=== PATIENT | male | born 1955 | race Caucasian/White ===

== ENCOUNTER 2016-11-14 06:41 | Inpatient (IN) | payer OTHER ==
[2016-11-14] VITALS (28 sets, daily range): BP systolic 83–137; BP diastolic 51–84; PULSE 68–103; RESP 10–19; Ht 170.2 cm; Wt 91.8 kg
[~2016-11-14] VITALS: Ht 170.2 cm; Wt 91.8 kg
[~2016-11-14 06:41] MED LIST: CEFAZOLIN 2 GM/50 ML (PMX) 50 ML IVPB SCH; LACTATED RINGER'S 1,000 ML IV* SCH
[2016-11-14] MEDS ORDERED: GABA400C14 PO (07:19)
[2016-11-14] MEDS ORDERED: METH500T8 PO (07:20)
[2016-11-14] MEDS ORDERED: TAMS0.4C2 PO (07:20)
[2016-11-14] MEDS ORDERED: OMEP20CA16 PO (07:20)
[2016-11-14] MEDS ORDERED: SUCCINYLCHOLINE CHLORIDE 100 MG/5 ML SYG IV ONE (08:15)
[2016-11-14] MEDS ORDERED: ROCURONIUM 50 MG INJ ONE (08:15)
[2016-11-14] MEDS ORDERED: FENTAnyl 50 MCG/ML VIAL ONE ×2 (08:15→09:43)
[2016-11-14] MEDS ORDERED: PROPOFOL 100 ML ONE (08:15)
[2016-11-14] MEDS ORDERED: MIDAZOLAM 1 MG/ML 2 ML INJ ONE (08:15)
[2016-11-14] MEDS ORDERED: THROMBIN 5000 UNIT VIAL ONE (08:16)
[2016-11-14] MEDS ORDERED: POLYMYXIN/BACITRACIN 1L IRRIG ONE (08:16)
[2016-11-14] MEDS ORDERED: GELATIN SIZE 100 SPONGE ONE (08:16)
[2016-11-14] MEDS ORDERED: BUPIVACAINE 0.25% (MPF) 10 ML 10 ML VIAL ONE (08:16)
--- NOTE | 2016-11-14 08:38 | HPN ---
Date/Time of Note Date/Time of Note DATE: 11/14/16 TIME: 08:38 Interval H&P Admission Note Pt. seen H&P reviewed: No system changes PAYAM ALFRED MD Nov 14, 2016 08:38
[2016-11-14] MEDS ORDERED: CEFAZOLIN 2 GM/50 ML (PMX) 50 ML IVPB SCH (09:00)
[2016-11-14] MEDS ORDERED: hydrALAzine 20 MG INJ ONE (09:41)
[2016-11-14] MEDS ORDERED: LABETALOL HCL 20MG INJ ONE (09:41)
[2016-11-14] MEDS ORDERED: PHENYLephrine (100 MCG/ML) 5ML SYG ONE (09:49)
[2016-11-14] MEDS ORDERED: METOCLOPRAMIDE 10 MG INJ ONE (10:00)
[2016-11-14] MEDS ORDERED: ONDANSETRON 4 MG INJ ONE (10:00)
[2016-11-14] MEDS ORDERED: DEXAMETHASONE 4 MG/ML 1 ML INJ ONE (10:00)
[2016-11-14] MEDS ORDERED: FAMOTIDINE 20 MG INJ ONE (10:00)
--- NOTE | 2016-11-14 10:05 | RADRPT ---
PROCEDURE: XR Lumbar Spine. CLINICAL INDICATION: LUMBAR MICRODISCECTOMY TECHNIQUE: A single lateral view of the lumbar spine was obtained. COMPARISON: No prior studies are available for comparison. FINDINGS: There is normal alignment. Posterior needle markers are noted at L3-4 and L4-5. There is mild to moderate degenerative disk di sease at L3-4 including disk space narrowing. There is normal osseous mineralization. There is normal alignment. IMPRESSION: Posterior needle marker is at the L3-4 and L4-5 disk spaces. RPTAT: EE Physician Latricia Date Time Electronically viewed and signed by Physician Latricia on 11/14/2016 10:05 RA/
--- NOTE | 2016-11-14 10:11 | RADRPT ---
PROCEDURE: XR Lumbar Spine. CLINICAL INDICATION: LUMBAR MICRODISCECTOMY TECHNIQUE: A single lateral view of the lumbar spine was obtained. COMPARISON: No prior studies are available for comparison. FINDINGS: There is normal alignment. Posterior needle markers are noted at L2-3, L3-4, and L4-5 with post surgical material at the needle tips. There is mild to moderate degenerative disk disease at L3-4 including disk space narrowing. There is normal osseous mineralization. There is normal alignment. IMPRESSION: Posterior needle markers at L2-3, L3-4, and L4-5, as above. RPTAT: EE Physician Latricia Date Time Electronically viewed and signed by Physician Latricia on 11/14/2016 10:11 /
[2016-11-14] MEDS ORDERED: DIPHENHYDRAMINE 50 MG INJ IV PRN (10:30)
[2016-11-14] MEDS ORDERED: EPHEDrine SULFATE 50 MG/5 ML SYG IV PRN (10:30)
[2016-11-14] MEDS ORDERED: hydrALAzine 20 MG INJ IV PRN (10:30)
[2016-11-14] MEDS ORDERED: morphine (1 MG/ML) 10ML SYRINGE IV PRN ×3 (10:30)
[2016-11-14] MEDS ORDERED: ONDANSETRON 4 MG INJ IV PRN ×2 (10:30→12:00)
[2016-11-14] MEDS ORDERED: ALBUMIN HUMAN 5% 250 ML IV PRN (10:30)
[2016-11-14] MEDS ORDERED: METOCLOPRAMIDE 10 MG INJ IV PRN (10:30)
[2016-11-14] MEDS ORDERED: HYDROmorphONE (0.2 MG/ML) 10ML SYG IV PRN ×2 (10:30)
[2016-11-14] MEDS ORDERED: LABETALOL HCL 20MG INJ IV PRN (10:30)
[2016-11-14] MEDS ORDERED: MEPERIDINE 25 MG INJ IV PRN (10:30)
[2016-11-14] MEDS ORDERED: GLYCOPYRROLATE 0.4 MG INJ ONE (11:05)
[2016-11-14] MEDS ORDERED: NEOSTIGMINE 3 MG/3 ML SYRINGE ONE (11:05)
[2016-11-14] MEDS ORDERED: ACETAMINOPHEN 1000MG/100ML IV 100 ML ONE (11:06)
[2016-11-14] MEDS ORDERED: HYDROmorphONE 0.2 MG/ML PCA ONE (11:53)
[2016-11-14] MEDS: HYDROmorphONE (0.2 MG/ML) 10ML SYG IV PRN ×3 (11:54→12:26)
[2016-11-14] MEDS ORDERED: BETHANECHOL 25 MG TAB PO PRN (12:00)
[2016-11-14] MEDS ORDERED: PROCHLORPERAZINE 10 MG TAB PO PRN (12:00)
[2016-11-14] MEDS ORDERED: HYDROCODONE/APAP (5/325) TAB PO PRN (12:00)
[2016-11-14] MEDS ORDERED: NALOXONE (0.4 MG/ML) INJ IV PRN (12:00)
[2016-11-14] MEDS ORDERED: DIAZEPAM 5 MG TAB PO PRN (12:00)
[2016-11-14] MEDS ORDERED: CEPASTAT LOZENGE MT PRN (12:00)
[2016-11-14] MEDS ORDERED: HYDROmorphONE 0.2 MG/ML PCA IV SCH (12:00)
[2016-11-14] MEDS ORDERED: DIAZEPAM 5 MG/ML SYG IM PRN (12:00)
[2016-11-14] MEDS ORDERED: NACL 0.9% 3 ML SYG IV SCH (12:00)
[2016-11-14] MEDS ORDERED: DIPHENHYDRAMINE 50 MG CAP PO PRN (12:00)
[2016-11-14] MEDS ORDERED: AL HYDROX/MG HYDROX/SIMETH 30 ML CUP PO PRN (12:00)
[2016-11-14] MEDS ORDERED: TRIMETHOBENZAMIDE 100 MG/ML VIAL IM PRN (12:00)
[2016-11-14] MEDS ORDERED: ZOLPIDEM 5 MG TAB PO PRN (12:00)
--- NOTE | 2016-11-14 12:10 | OPR ---
Date/Time of Note Date/Time of Note DATE: 11/14/16 TIME: 12:06 Operative Report Preoperative Diagnosis HNP L3-4 right Spinal Stenosis L2, 3,and 4 Postoperative Diagnosis Same Operation Performed Central decompressive laminectomy at L2 Central decompressive laminectomy at L3 Central decompressive laminectomy at L4 Microdiscectomy L3-4 on the right Medial facetectomy and foraminotomy L2-3 L3-4 and L4-5 bilateral Cosmetic wound closure (12 cm) Intraoperative nerve monitoring (2 hours) Lateral localizing lumbar radiographs (2) Surgeon: PAYAM ALFRED MD pharmacy technician assistant: JULY CASH Anesthesia: general Anesthesiologist: DAVIS STOO MD Estimated Blood Loss: 200 - 250 ml's Specimens Spinous processes L2,L3, and L4 HNP L3-4 right Tubes/Drains Two medium Hemovacs Complications: None Pt Condition Post Procedure: stable Disposition: PACU Operative\Procedure Findings At surgery, moderate stenosis at L4 and moderately severe stenosis at L3 and L2 was confirmed. There was a small to moderate right paracentral herniation of the L3-4 disc. PAYAM ALFRED MD Nov 14, 2016 12:10
[2016-11-14] MEDS: CEFAZOLIN 1 GM/50 ML (PMX) 50 ML IVPB SCH ×3 (12:25→23:59)
--- NOTE | 2016-11-14 13:27 | OPR ---
DATE OF OPERATION: 11/14/2016 PREOPERATIVE DIAGNOSES: 1. Lumbar spinal stenosis at L2, L3 and L4. 2. Herniated disk, L3-4 on the right. POSTOPERATIVE DIAGNOSES: 1. Lumbar spinal stenosis at L2, L3 and L4. 2. Herniated disk, L3-4 on the right. OPERATION PERFORMED: 1. Central decompressive laminectomy at L2. 2. Central decompressive laminectomy at L3. 3. Central decompressive laminectomy at L4. 4. Microdiskectomy L3-4 on the right. 5. Medial facetectomy and foraminotomy, L2-3, L3-4, L4-5 bilaterally. 6. Cosmetic wound closure (12 cm). 7. Lateral localized lumbar radiographs (2). 8. Intraoperative nerve monitoring (2 hours) SURGEON: Edgar Lazcano MD PERSONNEL ASSOCIATE Jane White PA-C ANESTHESIA: General endotracheal. ANESTHESIOLOGIST: Dr. Leonardo ESTIMATED BLOOD LOSS: 250 mL, none replaced. DRAINS: Two medium Hemovac drains employed. COMPLICATIONS: None. PERTINENT HISTORY AND PHYSICAL: This is a 61-year-old male who sustained an injury to his back in t he course of his employment on 05/31/2015. He has had extensive care since that time, but has remai tam symptomatic with back and lower extremity complaints, right greater than left, which have been u nrelieved by conservative management. He has undergone a number of diagnostic studies including an MRI of the lumbar spine, which demonstrated spinal stenosis at L2, L3 and L4 along with a herniation of the L3-4 disk on the right. Treatment options were discussed with the patient, who elected to p roceed with surgery. OPERATIVE FINDINGS AT SURGERY: A moderately severe central stenosis at L2 and L3 and a moderate miya nosis at L4 were confirmed. The herniation of the L3-4 disk on the right was moderate in size. The baseline intraoperative nerve monitoring revealed a decrease in the L2 potential on the right of 50 %, the L3 potential on the right of 40% and the L4 potential on the right of 40%. These all returne d to normal at the completion of surgery. OPERATIVE PROCEDURE: With the patient in supine position after satisfactory induction of general en dotracheal anesthesia by Dr. Leonardo, the patient was turned to the prone kneeling position on the [facility] frame. All pressure points were carefully padded. Back was prepped and draped in usual miya rile fashion. Athrombic pumps were applied to the legs below the knees to prevent venous stasis dur ing and after procedure. An indwelling Preciado catheter was also placed preoperative to facilitate bl adder drainage during and after the procedure. Two spinal needles were placed next to what was felt to be the L2 and L4 spinous processes, lateral roentgenogram was taken which confirmed anatomic loc alization. A 12 cm incision then carried out midline from L2-L5 through skin and subcutaneous tissu e to the deep fascia after skin was infiltrated with 0.25% Marcaine without epinephrine for postoper ative analgesia. Superficial retractors were placed and hemostasis secured with electrocautery. Th roughout the procedure, copious amounts of antibacterial irrigating solution were used to periodical ly irrigate the wound. The fascia was incised in midline with a hot knife and a bilateral subperios teal dissection carried out from L2 to L4. Deep retractors were placed and deep hemostasis secured with electrocautery. A second intraoperative radiograph was taken with Evelia clamps on the spinous process of L2, L3 and L4 and this was confirmed with second x-ray. A central decompressive laminec ramona at L4, L3 and L2 was then carried out using a Ijeoma right-angle bone rongeur, Leksell rongeur , Kerrison punches and curettes. Ligamentum flavum was incised with sharp dissection. The operatin g microscope was moved into place. A medial facetectomy and foraminotomy was accomplished at L2-3, L3-4, and L4-5 bilaterally using a small hand osteotome, mallet, Kerrison punches and curettes. Attention was then turned to the L3-4 disk on the right where the L4 root was mobilized medially and protected with Brittnee'Gary nerve root retractor using microdissection technique. This revealed a mayco iation of the L3-4 disk. A 15 blade knife used to cut a rectangular window in the annulus and poste rior longitudinal ligament and multiple degenerative disk fragments were harvested with pituitary ro ngeurs and sent to laboratory for pathologic study. Additional fragments were harvested using Epste in curettes. A thorough search of the floor of the canal was made with an arthroscopic probe. No a dditional fragments were encountered. The epidural hemostasis was secured with bipolar electrocaute ry on low setting. The anesthesiologist then asked to perform a Valsalva maneuver at 40 mmHg and no spinal fluid leak was noted. The wound was then closed in layers over 2 medium Hemovac drains, one below the fascia and one above the fascia, using #1 Stratafix sutures on the deep paralumbar muscul ature and deep fascia of back, 2-0 Stratafix sutures in subcu tissue, and a 4-0 Vicryl subcuticular cosmetic closing suture on the skin. Dermabond and sterile compressive dressings were applied. Kecia ient having tolerated procedure well, was then turned to supine position onto his bed and extubated by Dr. Leonardo. He was transported to the recovery room in satisfactory condition. At the conclusi on of procedure, sponge, instrument, and needle counts were all correct. NEED FOR RESIDENTIAL FINISH CARPENTER: During this spinal surgical procedure, my assistant research scientist was used to retrac t and protect the spinal nerves and dural sac. My assistant research scientist also employed the suction catheters to e vacuate blood from the surgical field to improve visualization of the neural structures. The assista nt was medically necessary to facilitate the completion of the surgery in a safe and expeditious man ner. State of [place] regulations, as well as hospital bylaws, preclude the use of non-licensed [facility] care personnel such as operating room technicians, to perform these functions. Throughout the procedure, neural monitoring was carried out by [employer] including EMG, SSEP and MEP monitoring of the L2, L3, L4, L5, and S1 nerve roots bilaterally along w ith spinal cord potentials. These were interpreted by a neurologist employed by [employer]. Dictated By: EDGAR LAZCANO MD TM/BEATRICE Conf#: [id number] DID#: [id number] CC: CHARLEY HERBERT MD;*End*
--- NOTE | 2016-11-14 14:17 | CONS ---
DATE OF ADMISSION: 11/14/2016 DATE OF CONSULTATION: MEDICAL CONSULTATION Thank you, Dr. Lazcano, for asking me to participate in medical management of this patient. REASON FOR CONSULTATION: I am seeing this patient to manage his gastroesophageal reflux disease, be nign prostatic hypertrophy. HISTORY OF PRESENT ILLNESS: This 61-year-old man is now in the recovery room after undergoing a lum bar spine surgery. The patient was having low back pain preoperatively. 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 The patient has tried medical therapy. However , he continues to have low back pain. The pain radiates into the buttock on the left side of the mi d back and down both legs. The patient is now postop a lumbar spine surgery by Dr. Lazcano. That surgery was a central decompressive laminectomy at L2, L3, L4, and a microdiscectomy at the L3-L4 le shay on the right. The patient preoperatively was diagnosed with a herniated nucleus pulposus at the L3-L4 level and spinal stenosis at L2, L3, and L4. The patient is awake. He is having some low ba ck incisional pain. He denies any chest pain or shortness of breath. He is being medicated for his pain. PAST MEDICAL HISTORY: Remarkable for gastroesophageal reflux disease, benign prostatic hypertrophy. PAST SURGICAL HISTORY: Included cholecystectomy. CURRENT MEDICATIONS: 1. Gabapentin 400 mg 3 times a day. 2. Methocarbamol 500 mg tablets, 2 to 4 times a day. 3. Tamsulosin 0.4 mg a day. 4. Omeprazole 20 mg a day. SOCIAL HISTORY: The patient does not smoke. He is with 4 kids. He drinks alcohol occasion ally. ALLERGIES: HE HAS NO KNOWN DRUG ALLERGIES. PHYSICAL EXAMINATION: GENERAL: At this time reveals a well-developed man in no apparent distress. VITAL SIGNS: Pulse is 88, blood pressure 121/72, O2 saturation is 98% on 2 L nasal cannula. HEENT: Head normocephalic. Eyes: Extraocular muscles intact. Nose and mouth: Normal. NECK: Supple. No neck vein distention. LUNGS: Clear to auscultation. HEART: Regular rhythm. No murmurs, gallops or rubs. ABDOMEN: Soft, nontender. EXTREMITIES: No peripheral edema. IMPRESSION: This patient is stable postoperatively. His vital signs are acceptable and his blood p ressure is normal. I will manage the patient's medical problems including gastroesophageal reflux d isease and benign prostatic hypertrophy. PLAN: 1. Resume routine medications. 2. Check labs in the morning. 3. Postop lumbar spine surgery protocol. 4. I will follow the patient along with you. Dictated By: GRACE BHAGAT MD, ND/BEATRICE Conf#: [id number] DID#: [id number]
[2016-11-14] MEDS: DEXTROSE 5%-0.45% NACL 1,000 ML IV SCH ×2 (18:38→21:49)
[2016-11-14] MEDS: GABAPENTIN 400 MG CAP PO SCH (20:10)
[2016-11-14] MEDS: RANITIDINE 150 MG TAB PO SCH (20:10)
[2016-11-14] MEDS ORDERED: TAMSULOSIN (SR) 0.4 MG CAP PO SCH (21:00)
[2016-11-15 00:04] VITALS: BP 129/70; PULSE 92; RESP 18
[2016-11-15] MEDS: CEFAZOLIN 1 GM/50 ML (PMX) 50 ML IVPB SCH (05:23)
[2016-11-15] MEDS: DEXTROSE 5%-0.45% NACL 1,000 ML IV SCH ×2 (05:24→16:09)
[2016-11-15 05:40] LABS: HEMATOCRIT 37.2 % (42.0-52.0); HEMOGLOBIN 12.4 g/dl (14.0-18.0)
[2016-11-15 06:15] LABS: CALCIUM 8.6 mg/dl (8.4-10.2); CREATININE 0.83 mg/dl (0.61-1.24); POTASSIUM 3.9 mmol/L (3.5-5.1)
--- NOTE | 2016-11-15 07:24 | PN ---
Date/Time of Note Date/Time of Note DATE: 11/15/16 TIME: 07:23 Assessment/Plan Lines/Catheters IV Catheter Type (from Nrsg): Peripheral IV Preciado in Place (from Nrsg): Yes Subjective 24 Hr Interval Summary The patient is postop day #1 following a multilevel decompressive laminectomy. He is resting comfortably in bed. His a.m. labs are unremarkable. Neurovascular structures are intact distally. His Hemovac output is moderate and will be left in place. We will mobilize him as tolerated with physical therapy. Exam/Review of Systems Vital Signs Vitals Vital Signs Date Time Temp Pulse Resp B/P Pulse Ox O2 Delivery O2 Flow Rate FiO2 11/15/16 05:39 18 11/15/16 00:04 98.7 92 129/70 95 Nasal Cannula 1.0 Intake and Output 11/14/16 11/14/16 11/15/16 15:00 23:00 07:00 Intake Total 1550 ml 340 ml 1700 ml Output Total 315 ml 1040 ml 90 ml Balance 1235 ml -700 ml 1610 ml Results Result Diagram: 11/15/16 0507 11/15/16 0507 PAYAM ALFRED MD Nov 15, 2016 07:24
[2016-11-15] MEDS ORDERED: BETHANECHOL 25 MG TAB PO PRN (08:00)
--- NOTE | 2016-11-15 08:44 | CONS ---
Date/Time of Note Date/Time of Note DATE: 11/15/16 TIME: 08:43 Assessment/Plan Assessment/Plan Additional Assessment/Plan 1. Doing well post op lumbar laminectomy. 2. GERD is quiet 3. BPH, langford to be removed and will check post void residual Consultation Date/Type/Reason Admit Date/Time Nov 14, 2016 at 06:41 Initial Consult Date Detailed Summary Respiratory: No shortness of breath Cardiovascular: No chest pain, No orthopenea Gastrointestinal: no complaints Genitourinary: other (langford in place) Musculoskeletal: back pain (moderate) Exam/Review of Systems Vital Signs Vitals Vital Signs Date Time Temp Pulse Resp B/P Pulse Ox O2 Delivery O2 Flow Rate FiO2 11/15/16 05:39 18 11/15/16 00:04 98.7 92 129/70 95 Nasal Cannula 1.0 Intake and Output 11/14/16 11/14/16 11/15/16 15:00 23:00 07:00 Intake Total 1550 ml 340 ml 1750 ml Output Total 315 ml 1040 ml 90 ml Balance 1235 ml -700 ml 1660 ml Exam Neck: No jvd Respiratory: clear to auscultation Cardiovascular: regular rate and rhythm Gastrointestinal: soft Extremities: No edema (and no calf tend) Results Result Diagram: 11/15/16 0507 11/15/16 0507 Results 24 hrs Laboratory Tests Test 11/15/16 05:07 Hemoglobin 12.4 L Hematocrit 37.2 L Sodium Level 141 Potassium Level 3.9 Chloride Level 106 Carbon Dioxide Level 28 Anion Gap 11 Blood Urea Nitrogen 11 Creatinine 0.83 Glucose Level 131 Calcium Level 8.6 Medications Medications Current Medications Lactated Ringer's 1,000 ml @ 0 mls/hr Q0M IV* ; Start 11/14/16 at 00:00; Stop at 23:59; Status No refill Lactated Ringer's 1,000 ml @ 0 mls/hr Q0M IV* ; Start 11/14/16 at 00:00; Stop at 23:59; Status No refill Dextrose/Sodium Chloride (D5-1/2ns) 1,000 ml @ 100 mls/hr Q10H IV Last administered on 11/15/16t 05:24; Admin Dose 100 MLS/HR; Start 11/14/16 at 11:49 Acetaminophen/ Hydrocodone Bitart (Combes (5/325)) 1 tab Q4H PRN PO PAIN LEVEL 1 -5; Start 11/14/16 at 12:00 Acetaminophen/ Hydrocodone Bitart (Combes (5/325)) 2 tab Q4H PRN PO PAIN LEVEL 6 -10; Start 11/14/16 at 12:00 Zolpidem Tartrate (Ambien) 5 mg HS PRN PO INSOMNIA; Start 11/14/16 at 12:00 Prochlorperazine (Compazine) 10 mg Q4H PRN PO NAUSEA AND/OR VOMITING; Start 11/14/16 at 12:00 Trimethobenzamide HCl (Tigan) 200 mg Q4H PRN IM NAUSEA AND/OR VOMITING; Start 11/14/16 at 12:00 Ondansetron HCl (Zofran Inj) 4 mg Q6H PRN IV NAUSEA AND/OR VOMITING; Start 11/14 at 12:00 Al Hydrox/Mg Hydrox/Simethicone (Mag-Al Plus) 15 ml Q4H PRN PO CONSTIPATION; Start 11/14/16 at 12:00 Docusate Sodium (Colace) 100 mg BID PO ; Start 11/15/16 at 09:00 Acetaminophen (Tylenol Tab) 650 mg Q4H PRN PO TEMP GREATER THAN 101F OR GOMEZ; Start 11/14/16 at 12:00 Ascorbic Acid (Vitamin C) 1,000 mg BID PO ; Start 11/15/16 at 09:00 Ferrous Sulfate (Ferrous Sulfate (Ec)) 325 mg TID PO ; Start 11/15/16 at 09:00 Ranitidine HCl (Zantac) 150 mg BID PO Last administered on 11/14/16 20:10; Admin Dose 150 MG; Start 11/14/16 at 21:00 Diazepam (Valium) 5 mg Q4H PRN PO MUSCLE SPASMS Last administered on 11/15/16 00:09; Admin Dose 5 MG; Start 11/14/16 at 12:00 Diazepam (Valium) 5 mg Q4H PRN IM MUSCLE SPASMS; Start 11/14/16 at 12:00 Phenol (Cepastat Lozenge) 1 lozenge PRN PRN MT SORE THROAT Last administered on 11/14/16 20:10; Admin Dose 1 LOZENGE; Start 11/14/16 at 12:00 Bethanechol Chloride (Urecholine) 25 mg PRN PRN PO UNABLE TO VOID; Start at 12:00 Diphenhydramine HCl (Benadryl) 50 mg Q6H PRN PO PRURITUS; Start 11/14/16 at 12: 00 Hydromorphone HCl (Dilaudid ONCOLOGY REP) Q4PCA IV Last administered on 11/14/16 12:20 ; Admin Dose 6 MG; Start 11/14/16 at 12:00 Naloxone HCl (Narcan) 0.2 mg Q2M PRN IV RR 8 BREATHS/MIN OR LESS; Start at 12:00 Gabapentin (Neurontin) 400 mg TID PO Last administered on 11/14/16 20:10; Admin Dose 400 MG; Start 11/14/16 at 21:00 Pantoprazole (Protonix Tab) 40 mg BID PO ; Start 11/15/16 at 09:00 Tamsulosin HCl (Flomax) 0.4 mg DAILY@21 PO ; Start 11/15/16 at 21:00 CHARLEY HERBERT MD Nov 15, 2016 08:44
[2016-11-15 08:51] VITALS: BP 147/77; RESP 18
--- NOTE | 2016-11-15 09:01 | CONS ---
DATE OF ADMISSION: 11/14/2016 DATE OF CONSULTATION: 11/14/2016 REASON FOR ADMISSION: Thank you very much for allowing me to evaluate this 61-year-old male, who is to undergo lumbar back surgery on 11/14/2016. HISTORICAL EVENTS: As you well know, this patient did suffer an injury at work, having fallen off a truck in mid 05/2015. Despite aggressive conservative therapy, he continues to have low back pain and radicular leg pain, right more than left and accompanying leg weakness. Today, he denies cough, wheezing, shortness of breath, substernal chest pain, radiating neck, arm or jaw discomfort. He de nies nausea, vomiting, abdominal pain, unusual constipation or diarrhea and denies symptoms of gastr ointestinal bleeding and if he takes his "meds" he does not suffer from reflux symptoms. He denies flank pain, fever, chills or dysuria and at this point is voiding quite well. MEDICATIONS: 1. Gabapentin 400 mg t.i.d. 2. Methocarbamol 500 mg 2 tabs t.i.d. p.r.n. 3. Tamsulosin 0.4. 4. Omeprazole 20 mg per day. PAST MEDICAL AND SURGICAL HISTORY: 1. GERD. 2. No history of diabetes, peptic ulcer disease hypertension or coronary disease. 3. He did have "history of prostate inflammation", this is quiescent and had cholecystectomy. ALLERGIES: NONE. FAMILY HISTORY: Will be reviewed later. SOCIAL HISTORY: Works in the [employer], does not smoke, occasionally has alcohol. He is , has 4 kids. PHYSICAL EXAMINATION: GENERAL: [place] male in no acute distress. VITAL SIGNS: BP 116/72, respirations were 18, heart rate was 72. He is afebrile. EYES: Extraocular muscles were full. NOSE, MOUTH, AND THROAT: Normal. NECK: Supple. There was no jugular venous distention, thyroid enlargement or adenopathy. Carotids 2+, no bruits. LUNGS: Clear. HEART: Rhythm was regular, no murmur. No third or fourth sound. ABDOMEN: Nontender. Liver and spleen were not palpable. No masses or tenderness were noted. EXTREMITIES: No edema. Calves nontender. NEUROLOGIC: Revealed bilateral leg weakness with both hip flexion, dorsiflexion and plantar flexion of his feet. IMPRESSION : Pending labs, I foresee no problems with your planned surgical intervention. I will b e glad to follow him with you postoperatively. Dictated By: CHARLEY OLIVO/BEATRICE Conf#: [id number] DID#: [id number] CC: PAYAM ALFRED MD;*EndCC*
[2016-11-15] MEDS: DOCUSATE SODIUM 100 MG CAP PO SCH ×2 (09:12→20:27)
[2016-11-15] MEDS: RANITIDINE 150 MG TAB PO SCH ×2 (09:12→20:27)
[2016-11-15] MEDS: FERROUS SULFATE (EC) 325 MG TAB PO SCH ×3 (09:12→20:27)
[2016-11-15] MEDS: PANTOPRAZOLE (EC) 40 MG TAB PO SCH ×2 (09:12→20:27)
[2016-11-15] MEDS: GABAPENTIN 400 MG CAP PO SCH ×3 (09:12→20:27)
[2016-11-15] MEDS: ASCORBIC ACID 500 MG TAB PO SCH ×2 (09:13→20:28)
[2016-11-15] MEDS: HYDROCODONE/APAP (5/325) TAB PO PRN ×3 (09:14→20:28)
[2016-11-15 14:06] LABS: ADD UMIC YES; URINE BILIRUBIN (Dip) NEGATIVE (NEGATIVE); URINE BLOOD (Dip) 1+ (NEGATIVE); URINE COLOR LT. YELLOW (YELLOW); URINE GLUCOSE (Dip) NEGATIVE (NEGATIVE); URINE KETONES (Dip) NEGATIVE (NEGATIVE); URINE NITRITE (Dip) NEGATIVE (NEGATIVE); URINE TOTAL PROTEIN (Dip) NEGATIVE (NEGATIVE); URINE UROBILINOGEN (Dip) 0.2 E.U./dL (0.1-1.0)
[2016-11-15 14:12] LABS: URINE LEUKOCYTE ESTERASE (Dip) NEGATIVE (NEGATIVE)
[2016-11-15 14:14] LABS: BACTERIA,URINE RARE; URINE RBCS 0-2 /HPF (0)
[2016-11-15] MEDS ORDERED: BISACODYL 10 MG SUPP PR PRN (16:30)
--- NOTE | 2016-11-15 18:20 | OPPN ---
Date/Time of Note Date/Time of Note DATE: 11/15/16 TIME: 18:19 Post-Anesthesia Notes Post-Anesthesia Note Last documented vital signs Vital Signs Date Time Temp Pulse Resp B/P Pulse Ox O2 Delivery O2 Flow Rate FiO2 11/15/16 08:51 98.2 67 18 147/77 97 11/15/16 00:04 Nasal Cannula 1.0 Activity: WNL Respiratory function: WNL Cardiovascular function: WNL Mental status: Baseline Pain reasonably controlled: Yes Hydration appropriate: Yes Nausea/Vomiting absent: Yes DAVIS SOTO MD Nov 15, 2016 18:20
[2016-11-15 20:28] VITALS: BP 136/65; RESP 18
[2016-11-15] MEDS ORDERED: TAMSULOSIN (SR) 0.4 MG CAP PO SCH (21:00)
[2016-11-16] MEDS: ACETAMINOPHEN 325 MG TAB PO PRN ×2 (00:33→06:26)
[2016-11-16] MEDS ORDERED: HYDROmorphONE 1 MG/ML SYG IV PRN (01:00)
[2016-11-16 03:43] LABS: ADD UMIC NO; URINE BILIRUBIN (Dip) NEGATIVE (NEGATIVE); URINE BLOOD (Dip) NEGATIVE (NEGATIVE); URINE COLOR LT. YELLOW (YELLOW); URINE GLUCOSE (Dip) NEGATIVE (NEGATIVE); URINE KETONES (Dip) NEGATIVE (NEGATIVE); URINE LEUKOCYTE ESTERASE (Dip) NEGATIVE (NEGATIVE); URINE NITRITE (Dip) NEGATIVE (NEGATIVE); URINE TOTAL PROTEIN (Dip) NEGATIVE (NEGATIVE); URINE UROBILINOGEN (Dip) 0.2 E.U./dL (0.1-1.0)
[2016-11-16] MEDS: DEXTROSE 5%-0.45% NACL 1,000 ML IV SCH (03:49)
[2016-11-16 05:22] LABS: ADD SCAN DIFF NO
[2016-11-16 05:31] LABS: BASOPHIL # 0.1 10^3/ul (0.0-0.1); BASOPHILS % 0.9 % (0.0-2.0); EOSINOPHILS # 0.2 10^3/ul (0.0-0.5); EOSINOPHILS % 2.3 % (0.0-7.0); HEMATOCRIT 37.8 % (42.0-52.0); HEMOGLOBIN 12.7 g/dl (14.0-18.0); LYMPHOCYTES % 19.3 % (15.0-51.0); MEAN CORPUSCULAR HEMOGLOBIN 29.7 pg (29.0-33.0); MEAN CORPUSCULAR HGB CONC 33.6 g/dl (32.0-37.0); MEAN CORPUSCULAR VOLUME 88.3 fl (82.0-101.0); MEAN PLATELET VOLUME 11.7 fl (7.4-10.4); MONOCYTE # 1.5 10^3/ul (0.3-0.9); NEUTROPHIL # 6.6 10^3/ul (1.6-7.5); PLATELET COUNT 203 10^3/UL (140-415); RED BLOOD COUNT 4.28 10^6/ul (4.70-6.10); RED CELL DISTRIBUTION WIDTH 12.5 % (11.5-14.5); WHITE BLOOD COUNT 10.4 10^3/ul (4.8-10.8)
[2016-11-16 05:51] LABS: CALCIUM 8.5 mg/dl (8.4-10.2); CREATININE 0.91 mg/dl (0.61-1.24)
--- NOTE | 2016-11-16 06:41 | PN ---
Date/Time of Note Date/Time of Note DATE: 11/16/16 TIME: 06:40 Assessment/Plan Lines/Catheters IV Catheter Type (from Nrsg): Saline Lock Preciado in Place (from Nrsg): No Subjective 24 Hr Interval Summary The patient is postop day #2 following a multilevel decompressive laminectomy. He is comfortable in bed. Neurovascular structures were intact distally. He has a low-grade temperature, which is currently 99.7F. Blood and urine cultures have been ordered by the fire extinguisher repairer inspector. We will postpone his discharge until he has been further evaluated. Exam/Review of Systems Vital Signs Vitals Vital Signs Date Time Temp Pulse Resp B/P Pulse Ox O2 Delivery O2 Flow Rate FiO2 11/16/16 02:17 99.0 11/15/16 20:28 82 18 136/65 98 11/15/16 00:04 Nasal Cannula 1.0 Intake and Output 11/15/16 11/15/16 11/16/16 15:00 23:00 07:00 Intake Total 1380 ml Output Total 1990 ml Balance -610 ml Results Result Diagram: 11/16/16 0424 11/16/16 0429 PAYAM ALFRED MD Nov 16, 2016 06:41
[2016-11-16 08:26] VITALS: BP 156/94; RESP 19
--- NOTE | 2016-11-16 09:21 | CONS ---
Date/Time of Note Date/Time of Note DATE: 11/16/16 TIME: 09:19 Assessment/Plan Assessment/Plan Additional Assessment/Plan 1. Stable post op lumbar back surgery 2. Low grade temp yest, this am afebrile, cultures pending 3. GERD, quiescent 4. OK to dc if no new temp Consultation Date/Type/Reason Admit Date/Time Nov 14, 2016 at 06:41 Detailed Summary Respiratory: No cough, No shortness of breath Cardiovascular: No chest pain, No orthopenea, No palpitations Gastrointestinal: no complaints Genitourinary: other (urine stream is sl slow) Musculoskeletal: back pain (mild, less then yesterday) Exam/Review of Systems Vital Signs Vitals Vital Signs Date Time Temp Pulse Resp B/P Pulse Ox O2 Delivery O2 Flow Rate FiO2 11/16/16 08:26 98.0 102 19 156/94 98 11/15/16 00:04 Nasal Cannula 1.0 Intake and Output 11/15/16 11/15/16 11/16/16 15:00 23:00 07:00 Intake Total 1380 ml 400 ml Output Total 1990 ml 1000 ml Balance -610 ml -600 ml Exam Neck: No jvd Respiratory: clear to auscultation Cardiovascular: regular rate and rhythm Gastrointestinal: soft Extremities: No edema (and no calf tend) Results Result Diagram: 11/16/16 0424 11/16/16 0429 Results 24 hrs Laboratory Tests Test 11/15/16 10:05 11/16/16 02:50 11/16/16 04:24 11/16/16 04:29 Urine Color LT. YELLOW LT. YELLOW Urine Clarity CLEAR CLEAR Urine pH 6.5 7.0 Urine Specific [place] <=1.005 L 1.010 Urine Ketones NEGATIVE NEGATIVE Urine Nitrite NEGATIVE NEGATIVE Urine Bilirubin NEGATIVE NEGATIVE Urine Urobilinogen 0.2 E.U./dL 0.2 E.U./dL Urine Leukocyte Esterase NEGATIVE NEGATIVE Urine Microscopic RBC 0-2 Urine Microscopic WBC 0-2 Urine Epithelial Cells RARE Urine Bacteria RARE Urine Hemoglobin 1+ H NEGATIVE Urine Glucose NEGATIVE NEGATIVE Urine Total Protein NEGATIVE NEGATIVE White Blood Count 10.4 Red Blood Count 4.28 L Hemoglobin 12.7 L Hematocrit 37.8 L Mean Corpuscular Volume 88.3 Mean Corpuscular Hemoglobin 29.7 Mean Corpuscular Hemoglobin Concent 33.6 Red Cell Distribution Width 12.5 Platelet Count 203 Mean Platelet Volume 11.7 H Neutrophils % 63.0 Lymphocytes % 19.3 Monocytes % 14.0 H Eosinophils % 2.3 Basophils % 0.9 Nucleated Red Blood Cells % 0.0 Neutrophils # 6.6 Lymphocytes # 2.0 Monocytes # 1.5 H Eosinophils # 0.2 Basophils # 0.1 Nucleated Red Blood Cells # 0.0 Sodium Level 142 Potassium Level 4.0 Chloride Level 105 Carbon Dioxide Level 31 Anion Gap 10 Blood Urea Nitrogen 15 Creatinine 0.91 Glucose Level 104 Calcium Level 8.5 Medications Medications Current Medications Acetaminophen/ Hydrocodone Bitart ([place] (5/325)) 1 tab Q4H PRN PO PAIN LEVEL 1 -5; Start 11/14/16 at 12:00 Acetaminophen/ Hydrocodone Bitart ([place] (5/325)) 2 tab Q4H PRN PO PAIN LEVEL 6 -10 Last administered on 11/15/16 20:28; Admin Dose 2 TAB; Start 11/14/16 at 12: 00 Zolpidem Tartrate (Ambien) 5 mg HS PRN PO INSOMNIA Last administered on 22:59; Admin Dose 5 MG; Start 11/14/16 at 12:00 Prochlorperazine (Compazine) 10 mg Q4H PRN PO NAUSEA AND/OR VOMITING; Start 11/14/16 at 12:00 Trimethobenzamide HCl (Tigan) 200 mg Q4H PRN IM NAUSEA AND/OR VOMITING; Start 11/14/16 at 12:00 Ondansetron HCl (Zofran Inj) 4 mg Q6H PRN IV NAUSEA AND/OR VOMITING; Start 11/14 at 12:00 Al Hydrox/Mg Hydrox/Simethicone (Mag-Al Plus) 15 ml Q4H PRN PO CONSTIPATION; Start 11/14/16 at 12:00 Docusate Sodium (Colace) 100 mg BID PO Last administered on 11/15/16 20:27; Admin Dose 100 MG; Start 11/15/16 at 09:00 Acetaminophen (Tylenol Tab) 650 mg Q4H PRN PO TEMP GREATER THAN 101F OR GOMEZ Last administered on 11/16/16 06:26; Admin Dose 650 MG; Start 11/14/16 at 12:00 Ascorbic Acid (Vitamin C) 1,000 mg BID PO Last administered on 11/15/16 20:28; Admin Dose 1,000 MG; Start 11/15/16 at 09:00 Ferrous Sulfate (Ferrous Sulfate (Ec)) 325 mg TID PO Last administered on 20:27; Admin Dose 325 MG; Start 11/15/16 at 09:00 Ranitidine HCl (Zantac) 150 mg BID PO Last administered on 11/15/16 20:27; Admin Dose 150 MG; Start 11/14/16 at 21:00 Diazepam (Valium) 5 mg Q4H PRN PO MUSCLE SPASMS Last administered on 11/15/16 00:09; Admin Dose 5 MG; Start 11/14/16 at 12:00 Diazepam (Valium) 5 mg Q4H PRN IM MUSCLE SPASMS; Start 11/14/16 at 12:00 Phenol (Cepastat Lozenge) 1 lozenge PRN PRN MT SORE THROAT Last administered on 11/14/16 20:10; Admin Dose 1 LOZENGE; Start 11/14/16 at 12:00 Bethanechol Chloride (Urecholine) 25 mg PRN PRN PO UNABLE TO VOID Last administered on 11/15/16 09:59; Admin Dose 25 MG; Start 11/14/16 at 12:00 Diphenhydramine HCl (Benadryl) 50 mg Q6H PRN PO PRURITUS; Start 11/14/16 at 12: 00 Naloxone HCl (Narcan) 0.2 mg Q2M PRN IV RR 8 BREATHS/MIN OR LESS; Start at 12:00 Gabapentin (Neurontin) 400 mg TID PO Last administered on 11/15/16 20:27; Admin Dose 400 MG; Start 11/14/16 at 21:00 Pantoprazole (Protonix Tab) 40 mg BID PO Last administered on 11/15/16 20:27; Admin Dose 40 MG; Start 11/15/16 at 09:00 Tamsulosin HCl (Flomax) 0.4 mg DAILY@21 PO Last administered on 11/15/16 20:27 ; Admin Dose 0.4 MG; Start 11/15/16 at 21:00 Bisacodyl (Dulcolax Supp) 10 mg DAILY PRN AL CONSTIPATION Last administered on 11/15/16 18:04; Admin Dose 10 MG; Start 11/15/16 at 16:30 Hydromorphone HCl (Dilaudid) 1 mg Q4H PRN IV PAIN Last administered on 01:23; Admin Dose 1 MG; Start 11/16/16 at 01:00 CHARLEY HERBERT MD Nov 16, 2016 09:21
[2016-11-16] MEDS: PANTOPRAZOLE (EC) 40 MG TAB PO SCH (10:34)
[2016-11-16] MEDS: HYDROCODONE/APAP (5/325) TAB PO PRN ×2 (10:34→14:51)
[2016-11-16] MEDS: FERROUS SULFATE (EC) 325 MG TAB PO SCH ×2 (10:35→13:00)
[2016-11-16] MEDS: RANITIDINE 150 MG TAB PO SCH (10:35)
[2016-11-16] MEDS: GABAPENTIN 400 MG CAP PO SCH ×2 (10:35→13:00)
[2016-11-16] MEDS: ASCORBIC ACID 500 MG TAB PO SCH (10:35)
[2016-11-16] MEDS: DOCUSATE SODIUM 100 MG CAP PO SCH (10:35)
== END 2016-11-16 15:16 | disposition home or self-care (01) | DRG 520 ==
LOC: REC 06:41 → MS1 16:45
PROVIDERS: ADMIT Orthopaedic Surgery; ATTEND Orthopaedic Surgery
PROC: 0SB20ZZ Excision of Lumbar Vertebral Disc, Open Approach (ICD-10-PCS; 2016-11-14)
PROC: 01NB0ZZ Release Lumbar Nerve, Open Approach (ICD-10-PCS; principal; 2016-11-14 09:30)
DX: M51.26 Other intervertebral disc displacement, lumbar region (principal); K21.9 Gastro-esophageal reflux disease without esophagitis; M48.06 Spinal stenosis, lumbar region; N40.0 Benign prostatic hyperplasia without lower urinary tract symptoms
CPT/HCPCS: 72020; 80048; 81001; 81003; 85014; 85018; 85025; 86850; 86900; 86901; 86920; 87040; 87086; 97116; 97162; 97530; J0131; J0360; J0690; J1100; J1170; J2250; J2370; J2405; J2710; J2765; J3010; J7042; J7120; J7999